=== PATIENT | female | born 1940 | race Caucasian/White ===

== ENCOUNTER 2021-03-14 14:58 | Outpatient (CLI) | payer OTHER ==
--- NOTE | 2021-03-15 14:30 | DEXA Report ---
PROCEDURE: Dexa Spine and/or Hip INDICATIONS: ENCOUTER FOR SCREENING FOR OSTEOPOROSIS TECHNIQUE: Dual energy x-ray absorptiometry (DXA) was performed on a [employer] System. Regions measur ed are the AP Spine, femoral neck, and if needed forearm. COMPARISON: None. FINDINGS: Lumbar spine not use before bone mineral density measurement secondary to multiple densities associat ed with severe osteophytosis. Left Hip: Bone Mineral Density 0.905 g/cm/cm,T score -0.8, normal Left Femoral Neck: Bone Mineral Density 0.890 g/cm/cm, T score -1.1, osteopenia Left forearm: Bone Mineral Density 0.679 g/cm/cm, T score -2.3, osteopenia (T score greater or equal to -1.0: NORMAL) (T score from -1.1 to -2.4: OSTEOPENIA) (T score less than or equal to -2.5 to: OSTEOPOROSIS) Impression: Osteopenia. Patients with diagnosis of osteoporosis or osteopenia should have regular bone mineral density assess ment. For those eligible for Medicare, routine testing is allowed once every 2 years. Testing frequ ency can be increased for patients who have rapidly progressing disease or for those who are receivin g medical therapy to restore bone mass. Reviewed by: Valery Whitman MD, PhD on 03/15/2021 2:29 PM PDT Approved by: Valery Whitman MD, PhD on 03/15/2021 2:29 PM PDT Station ID: [id number]
== END 2021-03-14 14:59 | disposition home or self-care (01) ==
LOC: DI 14:58
PROVIDERS: ATTEND Family Medicine
DX: Z13.820 Encounter for screening for osteoporosis (principal); M85.89 Other specified disorders of bone density and structure, multiple sites; M25.78 Osteophyte, vertebrae

== ENCOUNTER 2023-05-28 15:28 | Emergency (ER) | payer OTHER ==
[2023-05-28] MEDS ORDERED: ACETAMINOPHEN 500 MG TABLET PO STA (15:49)
--- NOTE | 2023-05-28 15:52 | ED Physician Documentation ---
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 Otherwise healthy with no history of abdominal surgeries. She was quite fatigued yesterday afternoon and was woken around 230 this morning with suprapubic pain that is nonradiating. It gets worse around the time of urination, but she does not have dysuria, frequency, or urgency, or foul smell or hematuria. Never had this before. She is mildly nauseous with this. She has had smaller than normal bowel movement this morning. No fevers. She was seen at the walk-in clinic and sent here for further evaluation after normal urine dip. PD PAST MEDICAL HISTORY - Present Medications Home Medications: Ambulatory Orders Medication Instructions Recorded Confirmed Amox/Clav 875/125 [Augmentin] 1 each PO TID #21 tablet 05/28/23 - Allergies Allergies/Adverse Reactions: Allergies Allergy/AdvReac Type Severity Reaction Status Date / Time codeine Allergy Emesis Verified 05/28/23 15:35 PD ED PE NORMAL - Vitals Vital signs reviewed: Yes - General General: Alert and oriented X 3, No acute distress - Cardiac Cardiac: RRR, No murmur - Respiratory Respiratory: No respiratory distress, Clear bilaterally - Abdomen Abdomen: Normal bowel sounds, Soft, Other (Significantly tender in the suprapubic area without surgical signs.) - Derm Derm: No rash - Neuro Neuro: Alert and oriented X 3, Normal speech Results - Vitals Vitals: Vital Signs - 24 hr 05/28/23 05/28/23 15:35 16:35 Temperature 36.5 C Heart Rate 90 Respiratory 16 Rate Blood Pressure 146/52 H O2 Saturation 98 Oxygen O2 Source Room air - Labs Labs: Laboratory Tests 05/28/23 05/28/23 05/28/23 16:05 16:08 16:08 WBC 15.0 H RBC 4.46 Hgb 13.3 Hct 40.2 MCV 90.1 MCH 29.8 MCHC 33.1 RDW 13.2 Plt Count 201 MPV 12.0 H Neut # (Auto) 13.1 H Lymph # (Auto) 1.1 L [place] # (Auto) 0.7 Eos # (Auto) 0.0 Baso # (Auto) 0.0 Absolute Nucleated RBC 0.00 Nucleated RBC % 0.0 Sodium 138 Potassium 3.6 Chloride 103 Carbon Dioxide 27 Anion Gap 8.0 BUN 22 H Creatinine 0.7 Estimated GFR (MDRD) 81 L Glucose 110 H Calcium 9.2 Total Bilirubin 0.8 AST 25 ALT 21 Alkaline Phosphatase 51 Total Protein 7.7 Albumin 4.5 Globulin 3.2 Albumin/Globulin Ratio 1.4 Lipase 30 Urine Color YELLOW Urine Clarity CLEAR Urine pH 5.0 Ur Specific [place] >=1.030 H Urine Protein NEGATIVE Urine Glucose (UA) NEGATIVE Urine Ketones TRACE Urine Occult Blood NEGATIVE Urine Nitrite NEGATIVE Urine Bilirubin NEGATIVE Urine Urobilinogen 0.2 (NORMAL) Ur Leukocyte Esterase NEGATIVE Ur Microscopic Review NOT INDICATED Urine Culture Comments NOT INDICATED - Rads (name of study) CT a/p Relevant Findings:: Final report received, EMP independent interpretation of test PD Medical Decision Making - ED course ED course: CT of the abdomen pelvis showing diverticulitis, uncomplicated with possible gastric ulcer and multiple gallstones. She already knew about the gallstones. We discussed starting a PPI in addition to specific management for the di verticulitis which she declined. I did at least advise her to talk with her doctor about upper endoscopy. We discussed at length pros and cons of antibiotics and diverticulitis and using shared decision making decided to go ahead with them. Departure - Departure Disposition: 01 Home, Self Care Clinical Impression: Diverticulitis of gastrointestinal tract Condition: Good Record reviewed to determine appropriate education?: Yes Instructions: ED Diverticulitis, ED Diet Clear Liquid, Diet Low Residue Prescriptions: Amox/Clav 875/125 [Augmentin] 1 each PO TID #21 tablet Comments: You were seen today for diverticulitis a common inflammation of the lower colon. See the attached handouts on clear liquid and low residue diet. Follow the clear liquid diet for the next 24 hours, and the low residue diet for the 48 hours following that. Follow-up with your doctor and discussed results of the CT scanning including potential for upper endoscopy given the finding of possibl e ulcer on CT. Return for new or worsening symptoms. It has not been too long since her last colonoscopy so probably not necessarily to repeat early but some specialist would recommend repeating it earlier after a diagnosis of diverticulitis but would have to wait until this current flare has healed.
[2023-05-28] MEDS ORDERED: iohexoL-300 100 ML VIAL ONE (16:03)
[2023-05-28 16:26] LABS: BILIRUBIN,URINE NEGATIVE (NEGATIVE); GLUCOSE, URINE (UA) NEGATIVE (NEGATIVE); KETONES,URINE (UA) TRACE mg/dL (NEGATIVE); LEUKOCYTE ESTERASE, URINE NEGATIVE (NEGATIVE); NITRITE,URINE NEGATIVE (NEGATIVE); OCCULT BLOOD,URINE NEGATIVE (NEGATIVE); PROTEIN,URINE NEGATIVE (NEGATIVE); UROBILINOGEN,URINE 0.2 (NORMAL) E.U./dL (NORMAL)
[2023-05-28 16:26] LABS: BASOPHILS % (AUTO) 0.3 %; EOSINOPHILS % (AUTO) 0.1 %; HCT - HEMATOCRIT 40.2 % (37.0-47.0); HGB - HEMOGLOBIN 13.3 g/dL (12.0-16.0); LYMPHOCYTES # (AUTO) 1.1 10^3/uL (1.5-3.5); LYMPHOCYTES % (AUTO) 7.2 %; MEAN CORPUSCULAR HEMOGLOBIN 29.8 pg (27.0-31.0); MEAN CORPUSCULAR HGB CONC 33.1 g/dL (32.0-36.0); MEAN CORPUSCULAR VOLUME 90.1 fL (81.0-99.0); MONOCYTES # (AUTO) 0.7 10^3/uL (0.0-1.0); MONOCYTES % (AUTO) 4.9 %; NEUTROPHILS # (AUTO) 13.1 10^3/uL (1.5-6.6); NEUTROPHILS % (AUTO) 87.3 %; PLT - PLATELET COUNT 201 10^3/uL (130-450); RED BLOOD COUNT 4.46 10^6/uL (4.20-5.40); RED CELL DISTRIBUTION WIDTH 13.2 % (12.0-15.0)
[2023-05-28 16:30] LABS: CLARITY,URINE CLEAR (CLEAR)
[2023-05-28 16:30] LABS: ALBUMIN 4.5 g/dL (3.2-5.5); ALBUMIN/GLOBULIN RATIO 1.4 (1.0-2.2); BILIRUBIN,TOTAL 0.8 mg/dL (0.2-1.0); CALCIUM 9.2 mg/dL (8.5-10.3); CREATININE 0.7 mg/dL (0.4-1.0); POTASSIUM 3.6 mmol/L (3.5-5.0); TOTAL PROTEIN 7.7 g/dL (6.7-8.2)
[2023-05-28] MEDS ORDERED: SODIUM CHLORIDE 0.9% 1,000 ML IV STA (16:35)
--- NOTE | 2023-05-28 18:03 | CT Report ---
PROCEDURE: ABDOMEN/PELVIS W INDICATIONS: IV only, low abd pain CONTRAST: 100ml omni 300 TECHNIQUE: After the administration of intravenous contrast, 5 mm thick sections acquired from the diaphragms to the symphysis. 5 mm thick coronal and sagittal reformats were acquired. For radiation dose reducti on, the following was used: automated exposure control, adjustment of mA and/or kV according to osiel ent size. COMPARISON: None. FINDINGS: Image quality: Excellent. Lung bases and heart: Bibasilar ground glass opacity which has the appearance of atelectasis. Liver: Benign hepatic cysts. Gallbladder and biliary tree: Multiple small gallstones. No pericholecystic fluid. Spleen: No splenomegaly. Splenic calcification. Pancreas: Enhances uniformly. Adrenals: No adrenal nodule. Kidneys and ureters: No hydronephrosis. No renal cystic lesion which requires follow up. No solid mas s. Small simple left renal cyst. Bowel and peritoneum: Thickening at the sigmoid colon. Diverticulosis. Inflammatory change and trace free fluid, (3/62). No extraluminal gas is seen. Normal appendix. No small bowel distention. No small bowel obstruction. Possible ulcer at the gastric antrum, (7/36 and 3/32). Lymph nodes: No central or retroperitoneal adenopathy. Vessels: No infrarenal aortic aneurysm. PELVIS Reproductive organs: Anteverted uterus. Bladder: No abnormal wall thickening, accounting for underdistention. Pelvic lymph nodes: No pelvic adenopathy by size criteria. Bones: No aggressive osseous abnormality. Other: No significant ventral or inguinal hernia. IMPRESSION: 1. Sigmoid colon diverticulitis. No abscess. Recommend follow-up colonoscopy if not recently performe d. 2. Possible gastric ulcer. Recommend clinical correlation. This could be further evaluated with endos copy. 3. Multiple gallstones. Reviewed by: Real Dotson MD on 05/28/2023 6:01 PM PDT Approved by: Real Dotson MD on 05/28/2023 6:01 PM PDT Station ID: [id number]
[2023-05-28] MEDS ORDERED: AMOX/CLAV 875 MG/125 MG TABLET PO STA (18:14)
[2023-05-28 18:36] VITALS: BP 133/56
[2023-05-28] MEDS ORDERED: iohexoL-300 100 ML VIAL IVP ONE (19:02)
== END 2023-05-28 18:29 | disposition home or self-care (01) ==
LOC: ED 15:28
DX: K57.32 Diverticulitis of large intestine without perforation or abscess without bleeding (principal)
CPT/HCPCS: 36415; 74177; 80053; 81003; 83690; 85025; 99283; 99284; A9270; Q9967; 81001; 87086